=== PATIENT | female | born 1975 | race Caucasian/White ===

== ENCOUNTER → 2017-06-24 | Outpatient (CLI) | payer BC ==
--- NOTE | 2017-06-24 09:37 | RAD ---
EXAMINATION: Magnetic resonance imaging (MRI) of the cervical spine without contrast HISTORY: Neck pain with left shoulder pain and arm stiffness and numbness. TECHNIQUE: Multiplanar multi-weighted MRI of the cervical spine was performed without intravenous contrast using the standard cervical spine protocol. Contrast information: None administered. COMPARISON: None available. FINDINGS: There is minimal retrolisthesis of C5 on C6. Vertebral bodies demonstrate normal signal intensity on all sequences. No acute fracture is identified; however, if trauma is suspected, a CT scan would be a more sensitive examination for fractures. The craniocervical junction is normal. The visualized portions of the skull base and the posterior fossa are normal. There is a small mucus retention cyst within the sphenoid sinus. The spinal cord demonstrates normal signal intensity on all sequences. There is disc height loss with disc desiccation at C4-C5, C5-C6 and C6-C7. Disc bulges are identified at C5-C6 and C6-C7. No soft tissue abnormality is identified. Normal signal voids are present in the vertebral arteries. C2-C3: The disk is normal in configuration. There is no facet arthropathy. There is no uncovertebral joint disease. There is no neuroforaminal stenosis. There is no spinal canal stenosis. C3-C4: The disk is normal in configuration. There is no facet arthropathy. There is no uncovertebral joint disease. There is no neuroforaminal stenosis. There is no spinal canal stenosis. C4-C5: The disk is normal in configuration. There is no facet arthropathy. There is no uncovertebral joint disease. There is no neuroforaminal stenosis. There is no spinal canal stenosis.canal stenosis. C5-C6: There is a posterior disc osteophyte complex asymmetric to the left. There is mild to moderate facet arthropathy. There is mild uncovertebral joint disease. There is moderate left neuroforaminal stenosis. There is mild spinal canal stenosis. C6-C7: There is a posterior disc osteophyte complex with a left central disc extrusion. There is [id number] facet arthropathy. There is mild uncovertebral joint disease. There is moderate to severe left neuroforaminal stenosis. There is moderate spinal canal stenosis. C7-T1: There is mild posterior disc osteophyte complex. There is no facet arthropathy. There is no uncovertebral joint disease. There is no neuroforaminal stenosis. There is no spinal canal stenosis. IMPRESSION: There is a posterior discussed by complex with a left central disc extrusion at C6-C7. Along with mild to moderate facet arthropathy and mild uncovertebral joint disease findings result in moderate to severe left neuroforaminal stenosis and moderate spinal canal stenosis. Electronically signed by: Mary Burton MD (06/24/2017 9:34 AM) [id number]
== END | disposition home or self-care (01) ==
LOC: MRI 08:24 → MERGE 08:45
PROVIDERS: ATTEND Nurse Practitioner Family
DX: M48.02 Spinal stenosis, cervical region (principal); R20.0 Anesthesia of skin
CPT/HCPCS: 72141

== ENCOUNTER → 2017-09-03 | Outpatient (CLI) | payer BC | END | disposition home or self-care (01) | LOC: US 10:26 | DX: I10 Essential (primary) hypertension (principal); I70.1 Atherosclerosis of renal artery; R07.9 Chest pain, unspecified | CPT/HCPCS: 93017; 93350; 93975 ==